=== PATIENT | male | born 1965 | race Caucasian/White ===

== ENCOUNTER 2016-12-22 13:47 | Observation (INO) | payer BC ==
--- NOTE | ~2016-12-22 | CN ---
Consultation Report [facility] [address] [place]. [address] NAME: GEORGIA LIU : 65 STATUS : ADM Kia PAT#: [id number] AGE: 51 ADM/REG DATE : 12/22/16 MR#: [id number] REPORT SERV DATE: 12/22/16 DICTATED BY: JAE AL DATE: 12/22/16 REPORT STATUS : Draft TRANSCRIBED BY: TONEY DATE: 12/22/16 DATE OF CONSULTATION: HISTORY: Mr. Liu is a 51-year-old gentleman who has had a stroke in the past as well as an SD in 2012. He now presents with nausea, vomiting, and right upper quadrant abdominal pain for the last 6 months, over which time, he has lost 60 pounds. He has a normal white count, and his ultrasound shows gallstones and sludge with some wall thickening. He has a positive sonographic Leavitt sign. His total bilirubin is 1.3, but LFTs are normal. Please see Dr. Sharp's dictation for past medical history, past surgical history, allergies, medications, social history, family history. REVIEW OF SYSTEMS: As stated in the HPI, otherwise, negative. PHYSICAL EXAMINATION: VITAL SIGNS: 99.1, 98, 130/66. GENERAL: Alert thin elderly white male who appears older than his stated age. HEENT: Normocephalic, atraumatic. EOMI. PERRLA. Oropharynx is clear. NECK: Supple. No lymphadenopathy. Clear to auscultation bilaterally. HEART: Regular rate and rhythm. ABDOMEN: Soft, flat. He has a pacer located in the left upper quadrant, which is somewhat tender to palpation, but if you palpate beneath or laterally to it, he has no pain. He does have a Leavitt sign present in the right upper quadrant on inspiration. EXTREMITIES: Moves all extremities well. NEUROLOGIC: Cranial nerves 2-12 intact. SKIN: No rashes. LABORATORY DATA: White count 7.5, H and H 10.2 and 30.1, and platelets of 130. Electrolytes within normal range. Creatinine is 0.65. Albumin 3.0. Ultrasound as mentioned above. ASSESSMENT AND PLAN: Early acute on chronic cholecystitis. I would suggest starting Zosyn, keeping him n.p.o. IV fluids. The plan is for lap versus open cholecystectomy in the morning by my partner, Dr. Nico Tripp. I have discussed the risks, benefits, and alternatives. He understands and is willing to proceed. STEVO/TONEY Jae Al M.D. / [id number] Consultation Report [address] [place]. [address] NAME: GEORGIA LIU : 65 STATUS : ADM Kia PAT#: [id number] AGE: 51 ADM/REG DATE : 12/22/16 MR#: [id number] REPORT SERV DATE: 12/22/16 DICTATED BY: JAE AL DATE: 12/22/16 REPORT STATUS : Draft TRANSCRIBED BY: TONEY DATE: 12/22/16 CC: Jae Al M.D.
--- NOTE | ~2016-12-22 | OP ---
Record Of Operation [facility] [address] [place]. [address] NAME: GEORGIA LIU : 65 STATUS : DIS Kia PAT#: [id number] AGE: 51 ADM/REG DATE : 12/22/16 MR#: [id number] REPORT SERV DATE: 12/24/16 DICTATED BY: CHERELLE SHERMAN DATE: 12/24/16 REPORT STATUS : Draft TRANSCRIBED BY: MODL DATE: 12/24/16 DATE OF PROCEDURE: 12/23/2016 ATTENDING: Cherelle Sherman M.D. RESIDENT: Keaton Garrison MD PREOPERATIVE DIAGNOSIS: Acute cholecystitis. POSTOPERATIVE DIAGNOSIS: Acute cholecystitis. OPERATION: Laparoscopic cholecystectomy. SPECIMEN: Gallbladder. FLUIDS: Approximately 1 L. EBL: 15 mL. ANESTHESIA: General and local. BRIEF HISTORY: A 51-year-old male with a history of previous stroke. The patient also has a history of heparin-induced thrombocytopenia, presented with acute cholecystitis to the hospital. After risks and benefits of the lap yosef, possible open were described in detail to the patient. He agreed to proceed with surgery. Preoperatively, the patient was given Angiomax for DVT prophylaxis secondary to his history of heparin-induced thrombocytopenia. Consent was signed. Correct site of surgery was marked, and he was then brought to the operating room and placed in supine position. DESCRIPTION OF PROCEDURE: After induction of general anesthesia, his abdomen was clipped, prepped and draped in standard fashion using Hibiclens and ChloraPrep. A time-out was performed which was correct. We then turned our attention to the infraumbilical area. A linear infraumbilical incision was made with a scalpel approximately 1.5 cm. This was carried down the fascia with blunt dissection. We then elevated the fascia with hemostats and incised it, entered the abdomen bluntly with a Romana. We then placed a 10 mm trocar into this fascial defect and insufflated the abdomen to 15 mmHg which the patient tolerated fine. Next, we inserted three additional trocars in standard positions for a lap yosef. The epigastric trocar was a 10 mm trocar. We then grasped the gallbladder at the fundus and the infundibulum and retracted toward the patient's right shoulder and right hip respectively. We then removed some omental adhesions. We dissected the cystic duct and the cystic artery out circumferentially and clipped those triply and divided them between the clips. We then removed the gallbladder from the gallbladder fossa with electrocautery. There was no arterial bleeding, but there was quite a bit of oozing from all of the manipulated surfaces on the liver and the gallbladder, likely secondary to the patient's dose of Angiomax, so Record Of Operation [facility] [address] [facility] [place] [address] NAME: GEORGIA LIU : 65 STATUS : DIS Kia PAT#: [id number] AGE: 51 ADM/REG DATE : 12/22/16 MR#: [id number] REPORT SERV DATE: 12/24/16 DICTATED BY: CHERELLE SHERMAN DATE: 12/24/16 REPORT STATUS : Draft TRANSCRIBED BY: TONEY DATE: 12/24/16 once the gallbladder was removed and placed into a bag, we did elect to place a 15-Citizen Of [place] Rick drain to the right lateral trocar and secured at the skin with 2-0 Prolene. We then removed our accessory trocars under direct visualization. We achieved hemostasis in the gallbladder fossa with electrocautery. There was no bleeding from the anterior abdominal wall. We then desufflated the abdomen through the umbilical trocar after removing the gallbladder and closed the fascia with a [id number] of 0 Vicryl. We irrigated subcutaneous tissue and closed the skin with interrupted 4-0 Monocryl sutures and covered them with Band-Aids. The patient tolerated the procedure well. There were no complications. He was extubated and brought to PACU in stable condition. ZECHARIAH/TONEY Cherelle Sherman M.D. / [id number] CC: Roberta Al M.D.
[2016-12-22 12:48] LABS: WBC (NOT ORDERED) (RFLEX) 0 (0-5)
[2016-12-22 12:52] LABS: BASOPHILS 0.1 %; BASOPHILS ABSOLUTE 0.01 10/3/uL (0.0-0.16); EOSINOPHILS 0.1 %; EOSINOPHILS ABSOLUTE 0.01 10/3/uL (0.0-0.53); IMMATURE GRANULOCYTES 0.1 %; IMMATURE GRANULOCYTES ABSOLUTE 0.01 10/3/uL (0.0-0.11); LYMPHOCYTES 36.4 %; LYMPHOCYTES ABSOLUTE 2.74 10/3/uL (0.67-4.30); MEAN CORPUSCULAR HEMOGLOB 31.4 pg (26.0-34.0); MEAN PLATELET VOLUME 10.1 fL (9.2-13.0); MONOCYTES 16.9 %; MONOCYTES ABSOLUTE 1.27 10/3/uL (0.21-1.20); NEUTROPHILS 46.4 %; NEUTROPHILS ABSOLUTE 3.48 10/3/uL (2.02-8.40); PLATELET COUNT 130 10/3/uL (150-400); RED CELL COUNT 3.25 10/6/uL (4.7-6.1); WHITE BLOOD CELLS 7.5 10/3/uL (4.5-10.5)
[2016-12-22 12:54] LABS: HEMATOCRIT 30.1 % (40.0-51.0); HEMOGLOBIN 10.2 g/dL (13.6-17.8); MANUAL DIFF NO %; MEAN CORPUS HGB CONC 33.9 g/dL (32.0-36.0); MEAN CORPUSCULAR VOLUME 92.6 fL (80-100); RBC DISTRIBUTION WIDTH 15.4 % (12.0-16.0)
[2016-12-22 12:56] LABS: ASCORBIC ACID (UR NOT ORDER) NEG (NEG); BILIRUBIN, URINE NEGATIVE (NEG); ER URINALYSIS TAT 0 Hrs 08 Mins; KETONE, URINE 20 MG/DL (NEG); LEUKOCYTE ESTERASE(NOT OR NEG (NEG); NITRITE (URINE) NEG (NEG)
[2016-12-22 13:08] LABS: ALKALINE PHOSPHATASE 93 U/L (45-117); CHLORIDE, SERUM 100 MMOL/L (96-112); CO2 (CARBON DIOXIDE) 24 MMOL/L (24-34); CREATININE 0.65 MG/DL (0.70-1.30); GFR AFRICAN AMERICAN 131 ML/MIN (>=60); GFR NON AFRICAN AMERICAN 113 ML/MIN (>=60); GLUCOSE, SERUM 103 MG/DL (60-99); POTASSIUM, SERUM 4.2 MMOL/L (3.5-5.3); SGOT(AST) 15 U/L (5-40); SGPT(ALT) 20 U/L (5-65); SODIUM, SERUM 138 MMOL/L (135-148)
[2016-12-22 13:09] LABS: A/G RATIO 0.7 (0.7-1.9); BUN (BLOOD UREA NITROGEN) 16 MG/DL (6-23); CALCIUM, SERUM 9.4 MG/DL (8.5-10.4); GLOBULIN 4.4 G/DL (2.5-4.1); TOTAL BILIRUBIN 1.3 MG/DL (0-1.2); TOTAL PROTEIN 7.4 G/DL (6.0-8.5)
[~2016-12-22 13:47] MED LIST: COREG12 PO; FLAG500TAB PO; FLOMAX4 PO; FOLIC PO; HALF81 PO; MEVACOR PO; NORCO1 TAB PO; PRILO PO; PROSCAR5 PO; ROCEPH IV; SPIRO25 PO; TAPAZOLE10 MG PO; VITAMIN B-122500 MCG PO/SL; VITAMIN D1000 UNI1 PO; VITC500 PO
[2016-12-22] MEDS ORDERED: Prinivil PO (14:25)
[2016-12-22] MEDS ORDERED: ZANTAC 150 PO (14:25)
[2016-12-22] MEDS ORDERED: REG PO (14:25)
[2016-12-22] MEDS ORDERED: Aspirin PO (14:26)
[2016-12-22] MEDS ORDERED: Aldactone PO (14:26)
[2016-12-22] MEDS ORDERED: Coreg PO (14:27)
[2016-12-22] MEDS ORDERED: PROTONIX PO (14:27)
[2016-12-22] MEDS ORDERED: NORCO1 TAB PO (14:28)
[2016-12-23 04:26] LABS: HEMATOCRIT 27.3 % (40.0-51.0); HEMOGLOBIN 9.4 g/dL (13.6-17.8); MANUAL DIFF YES %; MEAN CORPUS HGB CONC 34.4 g/dL (32.0-36.0); MEAN CORPUSCULAR HEMOGLOB 31.6 pg (26.0-34.0); MEAN CORPUSCULAR VOLUME 91.9 fL (80-100); MEAN PLATELET VOLUME 10.2 fL (9.2-13.0); PLATELET COUNT 120 10/3/uL (150-400); RBC DISTRIBUTION WIDTH 15.1 % (12.0-16.0); RED CELL COUNT 2.97 10/6/uL (4.7-6.1); WHITE BLOOD CELLS 5.4 10/3/uL (4.5-10.5)
[2016-12-23 04:35] LABS: A/G RATIO 0.6 (0.7-1.9); ALBUMIN 2.6 G/DL (3.5-5.0); BUN (BLOOD UREA NITROGEN) 13 MG/DL (6-23); CALCIUM, SERUM 8.8 MG/DL (8.5-10.4); CHLORIDE, SERUM 103 MMOL/L (96-112); CO2 (CARBON DIOXIDE) 24 MMOL/L (24-34); CREATININE 0.59 MG/DL (0.70-1.30); GFR AFRICAN AMERICAN 136 ML/MIN (>=60); GFR NON AFRICAN AMERICAN 117 ML/MIN (>=60); GLOBULIN 4.2 G/DL (2.5-4.1); GLUCOSE, SERUM 111 MG/DL (60-99); SGOT(AST) 15 U/L (5-40); SGPT(ALT) 18 U/L (5-65); SODIUM, SERUM 138 MMOL/L (135-148); TOTAL PROTEIN 6.8 G/DL (6.0-8.5)
[2016-12-23 04:39] LABS: ALKALINE PHOSPHATASE 80 U/L (45-117)
[2016-12-23 05:05] LABS: BASOPHILS 1 %; BASOPHILS ABSOLUTE (CALC) 0.05 10/3/uL (0.0-0.16); LYMPHOCYTES 51 %; LYMPHOCYTES ABSOLUTE (CALC) 2.75 10/3/uL (0.67-4.30); MONOCYTES 9 %; MONOCYTES ABSOLUTE (CALC) 0.49 10/3/uL (0.21-1.20); NEUTROPHILS ABSOLUTE (CALC) 2.11 10/3/uL (2.02-8.40); SEGMENTED NEUTROPHIL (0) 39 %; TOTAL NUCLEATED CELLS 100
[2016-12-23 05:08] LABS: PLATELET ESTIMATE DEC (ADEQUATE); RBC MORPHOLOGY NORM (NORMAL)
[2016-12-24 06:14] LABS: BASOPHILS 0.2 %; BASOPHILS ABSOLUTE 0.01 10/3/uL (0.0-0.16); EOSINOPHILS 0 %; HEMATOCRIT 32.7 % (40.0-51.0); HEMOGLOBIN 11.2 g/dL (13.6-17.8); IMMATURE GRANULOCYTES 0.5 %; IMMATURE GRANULOCYTES ABSOLUTE 0.03 10/3/uL (0.0-0.11); LYMPHOCYTES 12.5 %; LYMPHOCYTES ABSOLUTE 0.77 10/3/uL (0.67-4.30); MEAN CORPUS HGB CONC 34.3 g/dL (32.0-36.0); MEAN CORPUSCULAR HEMOGLOB 31.6 pg (26.0-34.0); MEAN CORPUSCULAR VOLUME 92.4 fL (80-100); MEAN PLATELET VOLUME 10.6 fL (9.2-13.0); MONOCYTES 10.2 %; MONOCYTES ABSOLUTE 0.63 10/3/uL (0.21-1.20); NEUTROPHILS 76.6 %; NEUTROPHILS ABSOLUTE 4.71 10/3/uL (2.02-8.40); PLATELET COUNT 151 10/3/uL (150-400); RBC DISTRIBUTION WIDTH 14.6 % (12.0-16.0); RED CELL COUNT 3.54 10/6/uL (4.7-6.1); WHITE BLOOD CELLS 6.2 10/3/uL (4.5-10.5)
[2016-12-24 06:15] LABS: MANUAL DIFF NO %
[2016-12-24 06:40] LABS: A/G RATIO 0.6 (0.7-1.9); ALBUMIN 2.8 G/DL (3.5-5.0); ALKALINE PHOSPHATASE 91 U/L (45-117); BUN (BLOOD UREA NITROGEN) 13 MG/DL (6-23); CALCIUM, SERUM 9.4 MG/DL (8.5-10.4); CHLORIDE, SERUM 104 MMOL/L (96-112); CO2 (CARBON DIOXIDE) 22 MMOL/L (24-34); CREATININE 0.66 MG/DL (0.70-1.30); GFR AFRICAN AMERICAN 130 ML/MIN (>=60); GFR NON AFRICAN AMERICAN 112 ML/MIN (>=60); POTASSIUM, SERUM 4.3 MMOL/L (3.5-5.3); SGOT(AST) 20 U/L (5-40); SGPT(ALT) 24 U/L (5-65); SODIUM, SERUM 140 MMOL/L (135-148); TOTAL BILIRUBIN 0.9 MG/DL (0-1.2); TOTAL PROTEIN 7.8 G/DL (6.0-8.5)
[2016-12-24 06:42] LABS: GLUCOSE, SERUM 141 MG/DL (60-99)
[2016-12-24] MEDS ORDERED: NORCO1 TA2 PO (07:36)
[2017-06-06] MEDS ORDERED: METHIMAZOLE5 MG PO (19:11)
[2017-06-06] MEDS ORDERED: KEPPRA750 MG PO (19:12)
[2017-06-06] MEDS ORDERED: PRIN10 PO (19:13)
[2017-06-06] MEDS ORDERED: COREG12 PO (19:13)
[2017-06-06] MEDS ORDERED: SPIRO25 PO (19:14)
[2017-06-06] MEDS ORDERED: MEVACOR PO (19:15)
[2017-06-06] MEDS ORDERED: OTC REFLUX MED PO (19:15)
[2017-06-07] MEDS ORDERED: ASPIRIN PO (13:07)
[2017-06-07] MEDS ORDERED: VITAMIN PO (13:08)
== END 2016-12-24 09:41 | disposition home or self-care (01) ==
LOC: ER 13:47 → CDU1 15:31 → SDC/OF 12-23 08:53 → 5SO 12-23 13:50
PROVIDERS: Nurse Practitioner; Specialist; Surgery; Surgery Trauma Surgery
PROC: 0FT44ZZ Resection of Gallbladder, Percutaneous Endoscopic Approach (ICD-10-PCS; principal; 2016-12-23 09:45)
DX: K81.0 Acute cholecystitis (principal); I50.9 Heart failure, unspecified; I25.10 Atherosclerotic heart disease of native coronary artery without angina pectoris; I10 Essential (primary) hypertension; E78.00 Pure hypercholesterolemia, unspecified; D64.9 Anemia, unspecified; E05.80 Other thyrotoxicosis without thyrotoxic crisis or storm; M19.90 Unspecified osteoarthritis, unspecified site; Z86.73 Personal history of transient ischemic attack (TIA), and cerebral infarction without residual deficits; Z88.0 Allergy status to penicillin; Z88.1 Allergy status to other antibiotic agents
CPT/HCPCS: 76705; 80053; 81001; 83690; 85025; 88304; 93005; 96374; 96375; 96376; 99285; A9270-GY; G0378; J0583; J0690; J1170; J2250; J2405; J2543; J2710; J3010; Q9967

== ENCOUNTER 2017-04-08 19:29 | Inpatient (IN) | payer BC ==
--- NOTE | ~2017-04-08 | DS ---
Discharge Summary [facility] [address] [place]. [address] NAME: GEORGIA LIU : 65 STATUS : DIS IN PAT#: [id number] AGE: 52 ADM/REG DATE : 04/08/17 MR#: [id number] REPORT SERV DATE: 04/14/17 DICTATED BY: DATE: REPORT STATUS : Draft TRANSCRIBED BY: MODL DATE: 04/13/17 ADMISSION DATE: 04/08/2017 DISCHARGE DATE: 04/13/2017 DISCHARGE DIAGNOSES: 1. Seizure, new onset. 2. History of cerebrovascular accident. 3. Substance abuse ? 4. Metabolic encephalopathy, resolving. 5. Ischemic cardiomyopathy/systolic congestive heart failure, chronic. 6. Hyperthyroidism. 7. Hypertension. CONSULTATIONS: Jeremiah Jackson M.D., Neurology, 04/10/2017. PERTINENT TESTS AND PROCEDURES: 1. CT of brain without contrast on 04/08/2017. Impression: Right MCA and right posterior cerebral artery infarctions appear old. Ventricular system is midline and normal. 2. Echocardiogram on 04/09/2017. Conclusion: Severely decreased left ventricular systolic function with ejection fraction 25%. Anterior and apical thinning and hypokinesis. Dilated left-sided chambers. Grossly normal right ventricular chamber size and systolic function. No valvular regurgitation or stenosis. 3. Spinal puncture on 04/10/2017. CSF culture final result, no growth at three days. 4. X-ray of right wrist on 04/10/2017. Impression: No acute bony abnormality involving right wrist. 5. CT of brain without contrast on 04/11/2017. Impression: No acute changes. Old infarcts unchanged. 6. Urinalysis, specimen collected on 04/09/2017, result negative. CHIEF COMPLAINT UPON ADMISSION: New onset of seizures. HOSPITAL COURSE: Please refer to history and physical dated 04/09/[address] Chay Campbell for complete details pertaining to the patient's initial presentation upon admission and health history. Please also refer to consultation provided by Dr. Jeremiah Jackson, Neurology, dated 04/10/2017. Briefly, the patient is a 52-year-old male who was transferred to [facility] from [facility] in [facility] on 04/08/2017 for evaluation and treatment of new onset seizures. Upon initial examination the patient was barely arousable, appeared to be postictal and followup very few commands. The patient was transferred to an Intermediate Care Unit for closer monitoring and seizure precautions. Once the patient was stabilized he was transferred to the floor for further monitoring. Discharge Summary [place] [id number] [place]. [address] NAME: GEORGIA LIU : 65 STATUS : DIS IN PAT#: [id number] AGE: 52 ADM/REG DATE : 04/08/17 MR#: [id number] REPORT SERV DATE: 04/14/17 DICTATED BY: DATE: REPORT STATUS : Draft TRANSCRIBED BY: MODL DATE: 04/13/17 Neurology followed daily. Extensive diagnostic workup to include labs, imaging, and EEG per Neurology did not provide clear etiology to explain new onset of seizures. Per the patient's daughter, mental status is slowly returning to baseline. Speech Therapy was consulted and the patient was found to have significant expressive dysphasia/aphasia with auditory comprehension deficits. Physical Therapy was also consulted. No recommendations for further physical therapy in outpatient setting indicated. The patient will follow up with Home Health Care and Speech Therapy Rehabilitation Services. 1. New onset of seizure activity. The patient was followed daily by Neurology. Extensive workup negative for exact etiology pertaining to seizure activity. The patient has not experienced any additional episodes at admission. The patient will continue to take Keppra 750 mg p.o. twice daily and follow with outpatient with his primary care physician. The patient was instructed that he is not to drive an automobile until medically cleared by primary care. The patient and family understood the importance of not driving and agreed that the patient would abstain from operating any motorized vehicle until medically cleared. 2. History of CVA. The patient has history of right MCA territory and left posterior cerebral artery infarctions in approximately 2014. New imaging did not indicate any acute changes or new infarcts. The patient has mild right-sided residual weakness in upper extremity, otherwise per family at baseline status. 3. Metabolic encephalopathy. Etiology unclear, but likely related to new onset of seizure activity. At the day of discharge, the patient is much more alert. Family at bedside to verify the patient is not quite at baseline, but improving. The patient is suffering from expressive dysphasia as well as auditory comprehension difficulties. He and family agreed to participate in speech therapy rehabilitation at discharge. 4. Ischemic cardiomyopathy/congestive heart failure systolic. Echo obtained reported ejection fraction to be 25%. No clinical signs or symptoms of acute exacerbation requiring intervention during this admission. 5. Hypothyroidism. Continue home medication. Lab work to include TSH and free T4 were obtained during this admission. TSH was reported to be 0.059 and total T4 of 5.6. The patient will follow up with primary care provider for further evaluation and treatment. 6. Hypertension. Continue home dose of TYRONE inhibitor and spironolactone. DISCHARGE CONDITION: At the time of discharge, the patient is hemodynamically stable. DISCHARGE DIET: Low sodium 2 g cardiac diet. DISCHARGE MEDICATIONS: The patient nor his family knew doses of home medications, although they recognize names provided at admission. The patient has been receiving doses during admission as verified per Pharmacy. The patient and family were instructed to continue all the patient's home medications and follow instructions for dosing as provided by primary care provider. 1. Aspirin 325 mg tablet p.o. daily. 2. Coreg 3.125 mg tablet p.o. twice daily. 3. Keppra 750 mg p.o. twice daily. 4. Prinivil 5 mg tablet p.o. daily. 5. Zocor 40 mg tablet p.o. daily. Discharge Summary [address] [address] NAME: GEORGIA LIU : 65 STATUS : DIS IN PAT#: [id number] AGE: 52 ADM/REG DATE : 04/08/17 MR#: [id number] REPORT SERV DATE: 04/14/17 DICTATED BY: DATE: REPORT STATUS : Draft TRANSCRIBED BY: TONEY DATE: 04/13/17 6. Aldactone 25 mg p.o. daily. 7. Tylenol 650 mg p.o. every 4 hours as needed. DISCHARGE INSTRUCTIONS: 1. Follow up with primary care provider in one to two weeks for new onset of seizures. 2. Follow up with Home Health Care and Speech Therapy for rehabilitation service as an outpatient. The patient and family were instructed to return to the emergency department for any acute onset of worsening neurological symptoms to include confusion, inability to state signs or symptoms of stroke, new seizure activity, or any other concerns that are deviations from his baseline status at the time of this discharge. DICTATED BY: MELANI Belle/TONEY MELANI Belle / [id number] CC: Geoffrey Buckner II, MD
--- NOTE | ~2017-04-08 | EEG ---
Electroencephalogram [facility] [address] [facility] [place]. [address] NAME: GEORGIA LIU : 65 STATUS : ADM IN PAT#: [id number] AGE: 52 ADM/REG DATE : 04/08/17 MR#: [id number] REPORT SERV DATE: 04/10/17 DICTATED BY: DATE: REPORT STATUS : Draft TRANSCRIBED BY: MODL DATE: 04/10/17 CLINICAL INDICATIONS: Seizures. DESCRIPTION: This EEG was performed using 10/20 electrode placement system. During the EEG study, symmetric background activity was noted with predominant occipital rhythm of 10-11 hertz. Photic stimulation was performed, however, hyperventilation was not performed secondary to the patient's underlying medical conditions. During the EEG study, the patient achieved drowsy state. No focal abnormality, seizure activity, or seizure discharge was otherwise noted. No electrographic seizure was observed during the EEG evaluation. INTERPRETATION: This EEG study obtained during awake and drowsy state may be considered within normal limits. No focal abnormalities, seizure activity, or seizure discharge was noted. Clinical correlation is recommended. [facility]/TONEY Jeremiah Jackson MD / [id number] CC: Garrison Wei M.D.
--- NOTE | ~2017-04-08 | HP ---
History And Physical [place] [address] [facility] [place]. [address] NAME: GEORGIA LIU : 65 STATUS : ADM IN PAT#: [id number] AGE: 52 ADM/REG DATE : 04/08/17 MR#: [id number] REPORT SERV DATE: 04/09/17 DICTATED BY: CHAY ALY DATE: 04/09/17 REPORT STATUS : Draft TRANSCRIBED BY: MODL DATE: 04/09/17 DATE OF ADMISSION: 04/08/2017 This is a patient from [facility] in [place], who was accepted in transfer by an associate of [facility], who is a daytime medical staff here for new onset of seizures. Briefly, from the history I got from the records which accompanied the patient which includes discharge summary from the ER physician at [facility], the patient was taken to the emergency room there for new onset of seizures at about 10:30 in the morning. I also got a chance to speak with the patient's son here who said his father who has heart failure and a defibrillator cannot do much these days, but was standing around supervising him build a patio and was standing in the sun. Later in the morning it became very hot and suddenly he saw his father having an episode of sweating which was followed by jerking movements and he watched him have a seizure. Mr. Liu soon fell to the ground hitting his head against iron bulkhead and started seizing while on the ground. EMS was summoned, and the patient was taken to the emergency room there. According to records which accompanied the patient, the patient had received two to three doses of Ativan in the ER and supposedly was given Keppra after he had a second episode of seizure. Apparently from speaking with the emergency medical team who transferred the patient here, he reports that when he went to pick the patient up, Mr. Liu was quite unresponsive. He also was slightly hypotensive. EMT was concerned and called the [employer] of the hospital who had no concerns about transferring the patient to a regular bed here. However, when the patient got here, I examined him. I had actually responded to a rapid response call. To my exam, he was barely arousable, seemed postictal and followed very few commands. However, his vitals appear to be stable. His respirations were adequate without any difficulty needing no positive pressure ventilatory support even. Interventions done right away, a decision was made to transfer patient to the Intermediate Care Unit for closer monitoring and seizure precautions as he was postictal. We will go ahead and get a repeat CT of the brain to ensure there was no bleeding or any new changes. We will also get repeat EKGs, labs including chemistry and CBC right away. We will also get an ABG to see how he is faring from a respiratory standpoint. We will consult Neurology right away. We will also plan on getting an MRI of the brain in the morning. I did get to speak to Dr. Hidalgo, who was covering for Neurology, and discussed the patient with him. He agrees with the CT of the brain and MRI, and also suggested a gram of Keppra to be given intravenously as an additional dose here. There is a report that there was Keppra given there, but reviewing the records which accompanied the patient I do not see any mention of that. So, we will go ahead and give a gram of Keppra and continue to monitor him with neuro checks, fall and seizure precautions. The patient was also agitated, we will give him some Ativan as well. We will also provide him with SCDs for DVT prophylaxis, continue his home medications if he can, place him on proton pump inhibitors, bronchodilators or supplemental oxygen therapy. We will keep him n.p.o. We will also give him IV fluids for volume resuscitation. Please see today's orders for all the details. His ABG showed a pH of 7.29, pCO2 was 50, PaO2 of 92, and bicarb was 24.2. I-STAT also showed History And Physical [address] [address] NAME: GEORGIA LIU : 65 STATUS : ADM IN PAT#: [id number] AGE: 52 ADM/REG DATE : 04/08/17 MR#: [id number] REPORT SERV DATE: 04/09/17 DICTATED BY: CHAY ALY DATE: 04/09/17 REPORT STATUS : Draft TRANSCRIBED BY: MODClark DATE: 04/09/17 hematocrit of 35; sodium 134, glucose 135 with an ionized calcium of 5.0. Please see today's orders for all the details. I did discuss the above plans with the patient's son. His questions were answered and he is agreeable to the above recommendations. Further recommendations will follow after Neurology has had a chance to see him in the morning. Total critical care time spent with the patient and with the family greater than 50 minutes. /TONEY Chay Aly M.D. / [id number] CC: Eliezer Johnson M.D.
--- NOTE | ~2017-04-08 | CN ---
Consultation Report [facility] [address] [place]. [address] NAME: GEORGIA LIU : 65 STATUS : ADM IN PAT#: [id number] AGE: 52 ADM/REG DATE : 04/08/17 MR#: [id number] REPORT SERV DATE: 04/10/17 DICTATED BY: DATE: REPORT STATUS : Draft TRANSCRIBED BY: MODL DATE: 04/09/17 NEUROLOGY CONSULTATION DATE OF CONSULTATION: 04/09/2017 REASON FOR CONSULT: New onset seizure. HISTORY OF PRESENT ILLNESS: This is a 52-year-old male who presented to [facility] on 04/08/2017 as a transfer from outside hospital secondary to new onset seizure. The patient's son reports the patient was outside on the patio watching patient's some work. The patient subsequently was noted to be sweating with noted jerking response and subsequently sustained a seizure. The patient was noted to have seizure-like activity again in the outside hospital emergency department. The patient was initially started with Keppra 1000 mg IV x1 but no subsequent dosage was continued. The patient was transferred to [facility] for further evaluation and treatment and was noted to have seizure-like activity. Rapid response was called and the patient was transferred to the IMCU unit. The patient's son otherwise reports the patient sometime gets disoriented and takes a while in order to regain verbal response after waking up roughly 30-40 minutes, but otherwise denies any motor deficits after previous stroke. The patient's son denies any recent changes in medication and denies any recent illness, fever, chills, nausea, vomiting, chest pain, shortness of breath, or complains of headache. The patient's son denies any previous known history of seizure or previous treatment with seizure medications. He also denies any previous [employer] infection with [employer] trauma. The patient does have a history of stroke in the past, but again is not noted to have any significant motor deficit and is able to be ambulatory by himself and managed household activity by himself. PAST MEDICAL HISTORY: The patient's past medical history is significant for history of stroke as well as history of defibrillator. The patient also takes blood pressure medications at home. Does not appear to have any significant diabetes history. The patient does have hypothyroidism and for which the patient is taking Synthroid at home. FAMILY HISTORY: No significant family history was otherwise reported. The patient's son denies any family history of seizures among family members. SOCIAL HISTORY: No current tobacco, alcohol, or recreational drug usage was reported. REVIEW OF SYSTEMS: Unable to be obtained from the patient. ALLERGIES: THE PATIENT WAS NOTED TO HAVE ALLERGY TO HEPARIN WELL ERYTHROMYCIN. MEDICATIONS: The patient's current hospital medications consist of folic acid, Coreg, Keppra, Rocephin, and thiamine. At home, the patient was also on aspirin as well as lisinopril. Consultation Report [facility] [address] [place]. [address] NAME: GEORGIA LIU : 65 STATUS : ADM IN [facility]#: [id number] AGE: 52 ADM/REG DATE : 04/08/17 MR#: [id number] REPORT SERV DATE: 04/10/17 DICTATED BY: DATE: REPORT STATUS : Draft TRANSCRIBED BY: MODL DATE: 04/09/17 PHYSICAL EXAMINATION: VITAL SIGNS: Overnight, the patient was noted to have vital signs with T-max of 97.5, heart rate of 53 to 81, respirations of 12 to 37, and blood pressure of 101 to 136 over 59 to 82. GENERAL: The patient is well developed, well nourished, in no acute distress. CARDIOVASCULAR: Regular rate and rhythm. No carotid bruits were otherwise auscultated. PULMONARY: Clear to auscultation bilaterally. NEUROLOGICAL: The patient is alert and oriented to self and person only. Otherwise, disoriented regarding year, place, or month. The patient was noted to have significant difficulties following commands as well as answer orientation question where the patient noted to have both expressive as well as receptive aphasia. Mild dysarthria was detected at the time of evaluation. Decreased attention span at the time of evaluation, unable to collaborate with registration or recall. Cranial Nerves 2 Through 12: Pupils are equal, round, and reactive to light. Horizontal eye movement was observed to tracking, blink to threat response was noted. Apparent symmetrical facial sensation with the patient noted to have symmetrical facial expression. Midline tongue. Decreased hearing in bilateral ears. The patient demonstrated intact ability to maintain bilateral upper extremity against examiner force. The patient otherwise is able to move bilateral lower extremity, was noted to have intact sensation to noxious stimulation in bilateral upper and lower extremity at the time of evaluation. Deep tendon reflex was hyperreflexic throughout. Upgoing toe on bilateral plantar reflexes. Gait and cerebellar examination was not performed secondary to encephalopathy and difficulty following complex commands. LABORATORY STUDIES: Demonstrated white blood cell count of 10.3, hemoglobin of 12.7, hematocrit of 37.1, and platelet count of 145. INR of 1.2. Chemistry panel: Sodium 140, potassium 4.4, chloride 107, bicarb 28, BUN of 12, creatinine of 0.93, glucose of 124, calcium of 8.0, magnesium of 2.2. The patient noted to have serum TSH of 0.024, hemoglobin A1c of 5.3, procalcitonin level of less than 0.05. Urinalysis demonstrated negative leukocyte esterase, negative nitrites. CT scan of the brain demonstrated pre-existing right parietal encephalomalacia secondary to previous stroke as well as reports of left temporal encephalomalacia. IMPRESSION: 1. Encephalopathy. We will check laboratory study as well as EEG secondary to new onset seizure as well as a persistent encephalopathy. We will also obtain lumbar puncture by Radiology to evaluate for possible infection, concern for possible post prolonged postictal state versus subclinical seizure versus metabolic etiology. 2. New onset seizures. We will continue the patient on Keppra 1000 mg IV b.i.d. We will obtain EEG study and lumbar puncture for evaluation. RECOMMENDATION: 1. EEG. Consultation Report [address] [address] NAME: GEORGIA LIU : 65 STATUS : ADM IN [facility]#: [id number] AGE: 52 ADM/REG DATE : 04/08/17 MR#: [id number] REPORT SERV DATE: 04/10/17 DICTATED BY: DATE: REPORT STATUS : Draft TRANSCRIBED BY: MODL DATE: 04/09/17 2. Radiology for lumbar puncture. 3. CSF for protein, glucose, cell count with differential, HSV PCR, cryptococcal antigen, Gram stain, and bacterial culture. 4. Keppra 1000 mg IV b.i.d. 5. Serum RPR, HIV, vitamin B12, folate, thiamine, TSH, free T4, ammonia level. 6. Thiamine 100 mg IV daily after lab work was drawn. [facility]/MODL Jeremiah Jackson MD / [id number] CC: Eliezer Johnson M.D. UNKNOWN
[~2017-04-08 19:29] MED LIST changes: +Aldactone PO; +Aspirin PO; +Coreg PO; +NORCO1 TA2 PO; +PROTONIX PO; +Prinivil PO; +REG PO; +ZANTAC 150 PO
[2017-04-08] MEDS ORDERED: METHIMAZOLE PO (20:44)
[2017-04-08] MEDS ORDERED: LOVASTATIN PO (20:45)
[2017-04-08 21:50] LABS: BASOPHILS 0.1 %; BASOPHILS ABSOLUTE 0.01 10/3/uL (0.0-0.16); EOSINOPHILS 0.1 %; EOSINOPHILS ABSOLUTE 0.01 10/3/uL (0.0-0.53); HEMOGLOBIN 12.7 g/dL (13.6-17.8); IMMATURE GRANULOCYTES 0.3 %; IMMATURE GRANULOCYTES ABSOLUTE 0.03 10/3/uL (0.0-0.11); LYMPHOCYTES 9.9 %; LYMPHOCYTES ABSOLUTE 1.02 10/3/uL (0.67-4.30); MEAN CORPUS HGB CONC 34.2 g/dL (32.0-36.0); MEAN CORPUSCULAR HEMOGLOB 34.6 pg (26.0-34.0); MEAN PLATELET VOLUME 10.4 fL (9.2-13.0); MONOCYTES 5.1 %; MONOCYTES ABSOLUTE 0.53 10/3/uL (0.21-1.20); NEUTROPHILS 84.5 %; NEUTROPHILS ABSOLUTE 8.71 10/3/uL (2.02-8.40); PLATELET COUNT 145 10/3/uL (150-400); RBC DISTRIBUTION WIDTH 15.1 % (12.0-16.0); RED CELL COUNT 3.67 10/6/uL (4.7-6.1)
[2017-04-08 21:53] LABS: HEMATOCRIT 37.1 % (40.0-51.0); MEAN CORPUSCULAR VOLUME 101.1 fL (80-100); WHITE BLOOD CELLS 10.3 10/3/uL (4.5-10.5)
[2017-04-08 21:54] LABS: MANUAL DIFF NO %
[2017-04-08 22:02] LABS: INTERNATIONAL NORMAL RATI 1.2 UNITS (-); PARTIAL THROMBO TIME 26.1 SEC (22.5-37.2); PROTIME (NOT ORD) 15.4 SEC (12.0-14.5)
[2017-04-08 22:18] LABS: BUN (BLOOD UREA NITROGEN) 12 MG/DL (6-23); CHLORIDE, SERUM 107 MMOL/L (96-112); CPK (IF ELEVATED MB BANDS) 406 U/L (0-200); CREATININE 0.93 MG/DL (0.70-1.30); GFR AFRICAN AMERICAN 109 ML/MIN (>=60); GFR NON AFRICAN AMERICAN 94 ML/MIN (>=60); GLUCOSE, SERUM 124 MG/DL (60-99); POTASSIUM, SERUM 4.4 MMOL/L (3.5-5.3); SGOT(AST) 36 U/L (5-40); SGPT(ALT) 46 U/L (5-65); SODIUM, SERUM 140 MMOL/L (135-148); TOTAL BILIRUBIN 0.6 MG/DL (0-1.2); TOTAL PROTEIN 7.1 G/DL (6.0-8.5); TROPONIN I <0.02 NG/ML (<0.05)
[2017-04-08 22:24] LABS: ALBUMIN 3.6 G/DL (3.5-5.0); ALKALINE PHOSPHATASE 181 U/L (45-117); CO2 (CARBON DIOXIDE) 28 MMOL/L (24-34); GLOBULIN 3.5 G/DL (2.5-4.1); ULTRASENSITIVE TSH 0.024 MCIU/ML (0.358-3.740)
[2017-04-08 22:42] LABS: PROCALCITONIN <0.05 ng/mL (<0.5)
[2017-04-09 03:21] LABS: CK-MB 4.6 NG/ML
[2017-04-09 06:14] LABS: ASCORBIC ACID (UR NOT ORDER) NEG (NEG); BILIRUBIN, URINE NEGATIVE (NEG); KETONE, URINE NEGATIVE (NEG); LEUKOCYTE ESTERASE(NOT OR NEG (NEG); WBC (NOT ORDERED) (RFLEX) < 1 (0-5)
[2017-04-09 16:38] LABS: AMPHETAMINES (NOT ORD) NEG (NEG); BARBITURATES (NOT ORDERED NEG (NEG); BENZODIAZEPINES (NOT ORD) POS (NEG); CANNABINOIDS (THC) POS (NEG); COCAINE (NOT ORDERED) NEG (NEG); OPIATES NEG (NEG); PHENCYCLIDINE(PCP) NEG (NEG); TRICYCLICS NEG (NEG)
[2017-04-09 18:36] LABS: FREE T4 0.66 NG/DL (0.76-1.46); ULTRASENSITIVE TSH 0.026 MCIU/ML (0.358-3.740)
[2017-04-09 18:38] LABS: FOLATE 11.3 NG/ML (>5.2)
[2017-04-10 07:25] LABS: BUN (BLOOD UREA NITROGEN) 6 MG/DL (6-23); CALCIUM, SERUM 8.3 MG/DL (8.5-10.4); CREATININE 0.75 MG/DL (0.70-1.30); GFR AFRICAN AMERICAN 122 ML/MIN (>=60); GFR NON AFRICAN AMERICAN 105 ML/MIN (>=60); GLUCOSE, SERUM 110 MG/DL (60-99); T4 (THYROXINE) TOTAL 5.6 MCG/DL (4.5-12.0)
[2017-04-10 07:29] LABS: CHLORIDE, SERUM 108 MMOL/L (96-112); POTASSIUM, SERUM 3.7 MMOL/L (3.5-5.3); SODIUM, SERUM 141 MMOL/L (135-148)
[2017-04-10 07:36] LABS: CO2 (CARBON DIOXIDE) 23 MMOL/L (24-34); ULTRASENSITIVE TSH 0.059 MCIU/ML (0.358-3.740)
[2017-04-10 10:08] LABS: TOTAL PROTEIN, CSF 45.6 MG/DL (15-45)
[2017-04-10 10:27] LABS: CSF BASO 0 % (NO REF RANGE); CSF COLOR (NOT ORD) COLORLESS (COLORLESS); CSF EOS 0 % (0-1); CSF LYMPH (NOT ORD) 44 % (28-96); CSF MONO 49 % (16-56); CSF RBC (NOT ORD) 57 MM3 (NO REFERENCE); CSF SEGS (NOT ORD) 7 % (0-7); CSF WBC (NOT ORD) 4 /uL (0-10); CSF XANTHROCHROMIA NEG (NEG)
[2017-04-10 10:28] LABS: CSF APPEARANCE (NOT ORD) CLEAR (CLEAR)
[2017-04-10 10:29] LABS: BASOPHILS 0.2 %; BASOPHILS ABSOLUTE 0.02 10/3/uL (0.0-0.16); EOSINOPHILS 0.1 %; EOSINOPHILS ABSOLUTE 0.01 10/3/uL (0.0-0.53); HEMATOCRIT 36.6 % (40.0-51.0); HEMOGLOBIN 12.5 g/dL (13.6-17.8); IMMATURE GRANULOCYTES 0.7 %; IMMATURE GRANULOCYTES ABSOLUTE 0.07 10/3/uL (0.0-0.11); LYMPHOCYTES 21.3 %; LYMPHOCYTES ABSOLUTE 2.15 10/3/uL (0.67-4.30); MEAN CORPUS HGB CONC 34.2 g/dL (32.0-36.0); MEAN CORPUSCULAR HEMOGLOB 34.2 pg (26.0-34.0); MEAN CORPUSCULAR VOLUME 100.3 fL (80-100); MONOCYTES 12.8 %; MONOCYTES ABSOLUTE 1.29 10/3/uL (0.21-1.20); NEUTROPHILS 64.9 %; NEUTROPHILS ABSOLUTE 6.54 10/3/uL (2.02-8.40); PLATELET COUNT 131 10/3/uL (150-400); RBC DISTRIBUTION WIDTH 14.6 % (12.0-16.0); RED CELL COUNT 3.65 10/6/uL (4.7-6.1); WHITE BLOOD CELLS 10.1 10/3/uL (4.5-10.5)
[2017-04-10 10:31] LABS: MANUAL DIFF NO %
[2017-04-11 07:28] LABS: BASOPHILS 0.9 %; BASOPHILS ABSOLUTE 0.05 10/3/uL (0.0-0.16); EOSINOPHILS 0.7 %; EOSINOPHILS ABSOLUTE 0.04 10/3/uL (0.0-0.53); HEMATOCRIT 36.1 % (40.0-51.0); HEMOGLOBIN 12.8 g/dL (13.6-17.8); IMMATURE GRANULOCYTES 0.4 %; IMMATURE GRANULOCYTES ABSOLUTE 0.02 10/3/uL (0.0-0.11); LYMPHOCYTES ABSOLUTE 2.14 10/3/uL (0.67-4.30); MEAN CORPUS HGB CONC 35.5 g/dL (32.0-36.0); MEAN CORPUSCULAR HEMOGLOB 34.8 pg (26.0-34.0); MEAN CORPUSCULAR VOLUME 98.1 fL (80-100); MEAN PLATELET VOLUME 10.7 fL (9.2-13.0); MONOCYTES 12.8 %; NEUTROPHILS 46.2 %; NEUTROPHILS ABSOLUTE 2.54 10/3/uL (2.02-8.40); PLATELET COUNT 131 10/3/uL (150-400); RBC DISTRIBUTION WIDTH 14.7 % (12.0-16.0); RED CELL COUNT 3.68 10/6/uL (4.7-6.1)
[2017-04-11 07:29] LABS: MANUAL DIFF NO %; WHITE BLOOD CELLS 5.5 10/3/uL (4.5-10.5)
[2017-04-11 07:39] LABS: BUN (BLOOD UREA NITROGEN) 7 MG/DL (6-23); CALCIUM, SERUM 8.4 MG/DL (8.5-10.4); CHLORIDE, SERUM 109 MMOL/L (96-112); CO2 (CARBON DIOXIDE) 27 MMOL/L (24-34); CREATININE 0.76 MG/DL (0.70-1.30); GFR AFRICAN AMERICAN 122 ML/MIN (>=60); GFR NON AFRICAN AMERICAN 105 ML/MIN (>=60); GLUCOSE, SERUM 104 MG/DL (60-99); POTASSIUM, SERUM 3.5 MMOL/L (3.5-5.3); SODIUM, SERUM 142 MMOL/L (135-148)
[2017-04-12 06:35] LABS: BUN (BLOOD UREA NITROGEN) 9 MG/DL (6-23); CALCIUM, SERUM 8.4 MG/DL (8.5-10.4); CHLORIDE, SERUM 108 MMOL/L (96-112); CO2 (CARBON DIOXIDE) 29 MMOL/L (24-34); CREATININE 0.79 MG/DL (0.70-1.30); GFR AFRICAN AMERICAN 120 ML/MIN (>=60); GFR NON AFRICAN AMERICAN 103 ML/MIN (>=60); GLUCOSE, SERUM 88 MG/DL (60-99); POTASSIUM, SERUM 3.6 MMOL/L (3.5-5.3); SODIUM, SERUM 142 MMOL/L (135-148)
[2017-04-12 06:37] LABS: BASOPHILS 0.4 %; BASOPHILS ABSOLUTE 0.02 10/3/uL (0.0-0.16); EOSINOPHILS 0.9 %; EOSINOPHILS ABSOLUTE 0.05 10/3/uL (0.0-0.53); HEMATOCRIT 35.6 % (40.0-51.0); HEMOGLOBIN 12.6 g/dL (13.6-17.8); IMMATURE GRANULOCYTES 0.2 %; IMMATURE GRANULOCYTES ABSOLUTE 0.01 10/3/uL (0.0-0.11); LYMPHOCYTES 35.8 %; LYMPHOCYTES ABSOLUTE 1.97 10/3/uL (0.67-4.30); MEAN CORPUS HGB CONC 35.4 g/dL (32.0-36.0); MEAN CORPUSCULAR HEMOGLOB 34.5 pg (26.0-34.0); MEAN CORPUSCULAR VOLUME 97.5 fL (80-100); MEAN PLATELET VOLUME 10.6 fL (9.2-13.0); MONOCYTES 9.3 %; MONOCYTES ABSOLUTE 0.51 10/3/uL (0.21-1.20); NEUTROPHILS 53.4 %; NEUTROPHILS ABSOLUTE 2.95 10/3/uL (2.02-8.40); PLATELET COUNT 150 10/3/uL (150-400); RBC DISTRIBUTION WIDTH 14.7 % (12.0-16.0); RED CELL COUNT 3.65 10/6/uL (4.7-6.1); WHITE BLOOD CELLS 5.5 10/3/uL (4.5-10.5)
[2017-04-12 06:38] LABS: MANUAL DIFF NO %
[2017-04-13 06:28] LABS: BASOPHILS 0.7 %; BASOPHILS ABSOLUTE 0.03 10/3/uL (0.0-0.16); EOSINOPHILS 2.2 %; HEMOGLOBIN 13.3 g/dL (13.6-17.8); IMMATURE GRANULOCYTES 0.2 %; IMMATURE GRANULOCYTES ABSOLUTE 0.01 10/3/uL (0.0-0.11); LYMPHOCYTES 45.6 %; LYMPHOCYTES ABSOLUTE 2.07 10/3/uL (0.67-4.30); MEAN CORPUSCULAR HEMOGLOB 34.6 pg (26.0-34.0); MEAN PLATELET VOLUME 10.1 fL (9.2-13.0); MONOCYTES 10.1 %; MONOCYTES ABSOLUTE 0.46 10/3/uL (0.21-1.20); NEUTROPHILS 41.2 %; NEUTROPHILS ABSOLUTE 1.87 10/3/uL (2.02-8.40); PLATELET COUNT 165 10/3/uL (150-400); RBC DISTRIBUTION WIDTH 14.4 % (12.0-16.0); RED CELL COUNT 3.84 10/6/uL (4.7-6.1); WHITE BLOOD CELLS 4.5 10/3/uL (4.5-10.5)
[2017-04-13 06:29] LABS: MANUAL DIFF NO %
[2017-04-13 06:37] LABS: BUN (BLOOD UREA NITROGEN) 11 MG/DL (6-23); CALCIUM, SERUM 8.4 MG/DL (8.5-10.4); CHLORIDE, SERUM 113 MMOL/L (96-112); CO2 (CARBON DIOXIDE) 26 MMOL/L (24-34); CREATININE 0.83 MG/DL (0.70-1.30); GFR AFRICAN AMERICAN 117 ML/MIN (>=60); GFR NON AFRICAN AMERICAN 101 ML/MIN (>=60); GLUCOSE, SERUM 90 MG/DL (60-99); POTASSIUM, SERUM 3.6 MMOL/L (3.5-5.3)
[2017-04-13 06:41] LABS: SODIUM, SERUM 135 MMOL/L (135-148)
[2017-04-13 14:37] LABS: HSV DNA TYPE 1 Not Detected (NOTDET); HSV DNA TYPE 2 Not Detected (NOTDET)
[2017-04-13] MEDS ORDERED: KEPPRA750 MG PO (15:47)
[2017-04-13] MEDS ORDERED: ASAB PO (16:38)
[2017-04-13] MEDS ORDERED: COREG12 PO (16:38)
[2017-04-13] MEDS ORDERED: PRIN20 PO (16:39)
[2017-04-13] MEDS ORDERED: CRESTOR10 PO (16:39)
[2017-04-13] MEDS ORDERED: T PO (16:41)
[2017-04-13] MEDS ORDERED: SPIRO25 PO (16:42)
[2017-04-13] MEDS ORDERED: TAPAZOLE10 MG PO (16:45)
[2017-04-13 20:35] LABS: THIAMINE 6.6 nmol/L (()); THIAMINE MONOPHOSPHATE <0.5 nmol/L (())
[2017-06-06] MEDS ORDERED: METHIMAZOLE5 MG PO (19:11)
[2017-06-06] MEDS ORDERED: KEPPRA750 MG PO (19:12)
[2017-06-06] MEDS ORDERED: COREG12 PO (19:13)
[2017-06-06] MEDS ORDERED: PRIN10 PO (19:13)
[2017-06-06] MEDS ORDERED: SPIRO25 PO (19:14)
[2017-06-06] MEDS ORDERED: MEVACOR PO (19:15)
[2017-06-06] MEDS ORDERED: OTC REFLUX MED PO (19:15)
[2017-06-07] MEDS ORDERED: ASPIRIN PO (13:07)
[2017-06-07] MEDS ORDERED: VITAMIN PO (13:08)
== END 2017-04-13 17:02 | disposition home health service (06) | DRG 100 ==
LOC: 2SO 19:29 → IMCU 19:52 → 1SO 04-10 16:03
PROVIDERS: Internal Medicine; Internal Medicine Pulmonary Disease; Psychiatry & Neurology Neurology
PROC: 009U3ZZ Drainage of Spinal Canal, Percutaneous Approach (ICD-10-PCS; principal; 2017-04-10)
DX: G40.89 Other seizures (principal); G93.41 Metabolic encephalopathy; I50.22 Chronic systolic (congestive) heart failure; R47.01 Aphasia; I11.0 Hypertensive heart disease with heart failure; I25.10 Atherosclerotic heart disease of native coronary artery without angina pectoris; J44.9 Chronic obstructive pulmonary disease, unspecified; R13.10 Dysphagia, unspecified; I25.5 Ischemic cardiomyopathy; E03.9 Hypothyroidism, unspecified; F12.10 Cannabis abuse, uncomplicated; F19.10 Other psychoactive substance abuse, uncomplicated; Z79.82 Long term (current) use of aspirin; Z79.899 Other long term (current) drug therapy; Z86.73 Personal history of transient ischemic attack (TIA), and cerebral infarction without residual deficits; Z95.810 Presence of automatic (implantable) cardiac defibrillator; Z88.1 Allergy status to other antibiotic agents; Z88.8 Allergy status to other drugs, medicaments and biological substances
CPT/HCPCS: 36600; 62270; 70450; 73100-RT; 77003; 80048; 80053; 80305; 81001; 82140; 82330; 82550; 82553; 82607; 82746; 82803; 82945; 82947; 82962; 83036; 83605; 83735; 84100; 84132; 84145; 84157; 84295; 84425; 84436; 84439; 84443; 84484; 85014; 85025; 85610; 85730; 86592; 87040; 87070; 87205; 87327; 87389; 87529; 87529-59; 87641; 89051; 92523-GN; 94640; 95816; 97161-GP; A9270-GY; C8929; J1953; J2405; J2550; J3411; J3486; Q9957